=== PATIENT | female | born 1995 | race Caucasian/White ===

== ENCOUNTER 2017-05-21 06:46 | Inpatient (IN) ==
--- NOTE | 2017-05-21 05:56 | OB/GYN History & Physical ---
Date of Encounter: 05/21/17 Time of Encounter: 05:46 Assessment and Plan (1) Active labor at term Current visit: Yes Status: Acute Anticipate spontaneous vaginal delivery History of Present Illness Chief complaint: Active Labor HPI: Ms. Mares is a 21 year old female, presenting via ambulance at 39w s/ p SROM--completely dilated (initial plan for induction later this AM with Dr. Mcgee). Continues to have strong contractions. Preg has been uncomplicated. Pt reports pre- history is unremarkable for identification of risk factors to delivery of baby. Past Med Surg Social Fam HX - Past Medical History Medical history: no medical history Psychiatric history: no psych history - Past Surgical History Surgical History: no surgical history - Social History Smoking Status: Never smoker Smokeless Tobacco Status: No Alcohol use: none Drug use: none - Family History Mother Living Status: Still Living Hx Family Cardiac Disorders: No Hx Family Respiratory Disorders: No Hx Family Cancer: No Hx Family GI Disorders: No Hx Family Endocrine Disorder: No Hx Family Neuromuscular Disorders: No Hx Family Neurologic Disorders: No Hx Family HEENT Disorders: No Hx Family Autoimmune Disorders: No Obstetrical History - Pregnancies : 2 Para: 1 Medications and Allergies Vit #108/Iron/FA [ One Tablet] 1 each PO DAILY 04/28/16 [ History] Breast Pump [BREAST PUMP] 1 each .ROUTE AD #1 each 05/14/16 [Rx] Ferrous Sulfate [Iron] 325 mg PO DAILY #30 tablet 12/28/16 [Rx] Allergies No Known Allergies Allergy (Verified 03/21/17 10:52) Exam - Constitutional Constitutional: well developed, well nourished, no acute distress - HEENT HEENT: Mucus Membranes Moist - Neck Neck exam: full ROM - Lungs Respiratory exam: CTAB - Cardiovascular Cardiovascular exam: +S1, +S2 - Abdomen Abdomen: Present: bowel sounds normal - Extremities Extremities exam: normal inspection, warm - Vagina Vagina: Present: normal moisture - Cervix Dilation: 10 Effacement: 100 Station: +3 - Uterus Uterus exam: Present: enlarged Results All other labs normal.
--- NOTE | 2017-05-21 06:16 | OB/GYN Procedure Note ---
Delivery - Delivery Date: 05/21/17 Provider: Wayne Mendez Intrapartum events: none Delivery induction: none Delivery augmentation: rupture of membranes Delivery monitor: none Anesthesia: none Estimated Blood Loss: 100 - (s) A Delivery Date: 05/21/17 Delivery Time: 05:23 Presentation: vertex Route of delivery: Gender: Male Viability: Viable Pounds: 6 Ounces: 7 at 1 minute: 9 at 5 mins: 9 Shoulder Dystocia: not encountered Specimens collected: cord blood Placenta: complete extraction Cord: 3 umbilical vessels - Repair Episiotomy: none Laceration Description: None - Complications Delivery complications: none - Disposition Mom disposition: stable in LDR
[~2017-05-21 06:46] MED LIST: Acetaminophen 325 MG TABLET PO PRN; Famotidine 20 MG/2 ML VIAL IVP PRN; Measles/Mumps/Rubella Vacc 0.5 ML VIAL SQ PRN; Naloxone 0.4 MG/ML INJ IVP PRN; Oxytocin 20 units/ LR 1000 mL 20 UNIT/1,000 ML BAG IVC ONE; Oxytocin 20 units/ LR 1000 mL 20 UNIT/1,000 ML BAG IVC SCH; Rho Immune Globulin 1,500 UNIT SYRINGE IM PRN
[2017-05-21] MEDS ORDERED: BREAST PUMP PO SCH (07:00)
[2017-05-21] MEDS: Prenatal Vit/FA 1 EACH TABLET PO SCH (08:54)
[2017-05-22 06:24] LABS: Basophils % 0.3 %; Eosinophils # 0.1 K/mcL (0.0-0.6); Hematocrit 30.1 % (35.3-44.9); Hemoglobin 8.8 g/dL (11.5-15.4); Immature Granulocytes % 0.6 % (0-4); Lymphocytes # 3.1 K/mcL (0.6-4.6); Lymphocytes % 29.8 %; Mean Corpuscular HGB Conc 29.2 g/dL (31.6-35.5); Mean Corpuscular Volume 71.7 fL (83.0-100.0); Mean Platelet Volume 9.3 fL (9.4-12.4); Monocytes # 0.5 K/mcL (0.0-1.3); Monocytes % 5.2 %; Neutrophils # 6.6 K/mcL (1.6-8.9); Platelet Count 236 K/mcL (140-400); Red Cell Distribution Width 17.9 % (11.5-14.5); Segmented Neutrophils % 63.1 %
[2017-05-22 08:43] VITALS: BP 106/67
[2017-05-22] MEDS: Prenatal Vit/FA 1 EACH TABLET PO SCH (10:42)
--- NOTE | 2017-05-22 10:47 | Discharge Summary ---
Date of Encounter: 05/22/17 Time of Encounter: 10:44 - Discharge Diagnosis (1) Mother currently breast-feeding Priority: Secondary Status: Acute (2) Anemia Priority: Secondary Status: Acute Comments: Discharge home on iron. Qualifiers: Anemia type: iron deficiency Iron deficiency anemia type: unspecified iron deficiency Qualified Code(s): D50.9 - Iron deficiency anemia, unspecified (3) (normal spontaneous vaginal delivery) Priority: Primary Status: Acute Comments: Pt meeting all milestones. - Discharge Medications Prescriptions: Ibuprofen [Motrin] 600 mg PO Q6HR PRN #60 tab PRN Reason: pain Docusate [Colace] 100 mg PO BID #60 Home Medications: Vit #108/Iron/FA [ One Tablet] 1 each PO DAILY 04/28/16 [ History] Breast Pump [BREAST PUMP] 1 each .ROUTE AD #1 each 05/14/16 [Rx] Ferrous Sulfate [Iron] 325 mg PO DAILY #30 tablet 12/28/16 [Rx] Docusate [Colace] 100 mg PO BID #60 05/22/17 [Rx] Ferrous Sulfate 325 mg PO DAILY #0 tab 05/22/17 [Rx] Ibuprofen [Motrin] 600 mg PO Q6HR PRN #60 tab 05/22/17 [Rx] Vit/FA 1 each PO DAILY tab 05/22/17 [Rx] Allergies/Adverse Reactions: Allergies No Known Allergies Allergy (Verified 03/21/17 10:52) Data Procedures and tests throughout hospitalization: Laboratory Tests 05/22/17 06:14 WBC 10.4 RBC 4.20 Hgb 8.8 L Hct 30.1 L MCV 71.7 L MCH 21.0 L MCHC 29.2 L RDW 17.9 H Plt Count 236 MPV 9.3 L Immature Gran % 0.6 Seg Neutrophils % 63.1 Lymphocytes % 29.8 Monocytes % 5.2 Eosinophils % 1.0 Basophils % 0.3 Neutrophils # 6.6 Lymphocytes # 3.1 Monocytes # 0.5 Eosinophils # 0.1 Basophils # 0.0 Labs on day of discharge: Labs from last 24 hours 05/22/17 06:14 WBC 10.4 RBC 4.20 Hgb 8.8 L Hct 30.1 L MCV 71.7 L MCH 21.0 L MCHC 29.2 L RDW 17.9 H Plt Count 236 MPV 9.3 L Immature Gran % 0.6 Seg Neutrophils % 63.1 Lymphocytes % 29.8 Monocytes % 5.2 Eosinophils % 1.0 Basophils % 0.3 Neutrophils # 6.6 Lymphocytes # 3.1 Monocytes # 0.5 Eosinophils # 0.1 Basophils # 0.0 Date of admission: 05/21/17 06:46 Primary care physician: ЕЛЕНА GUAMAN Consults: 05/21/17 06:07 Consult to Ruby On Rails Developer [CONS] Routine Comment: Vaginal delivery, consult needed Discharging clinician: Akosua Bautista Anticipated date of discharge: 05/22/17 - Patient Status Disposition: Home, Self-Care Condition: Good Functional capacity at discharge: independent ambulation Overall status at discharge: patient is progressing back to baseline - Discharge Instructions Follow Up With: NONE,PCP [Primary Care Provider] - Tom Mcgee DO [Partnered Physician] - - Diet and Activity Activity: increase activity as tolerated Diet: regular diet Hospital Course Reason for admission: active labor Delivery: Episiotomy: none Laceration: none Other procedures: none complications: none Discharge diagnosis: IUP at term delivered baby: male Hospital course: - Delivery Date: 05/21/17 Provider: Wayne Mendez Intrapartum events: none Delivery induction: none Delivery augmentation: rupture of membranes Delivery monitor: none Anesthesia: none Estimated Blood Loss: 100 - Infant (s) Infant A Infant Delivery Date: 05/21/17 Infant Delivery Time: 05:23 Presentation: vertex Route of delivery: Gender: Male Viability: Viable Pounds: 6 Ounces: 7 at 1 minute: 9 at 5 mins: 9 Shoulder Dystocia: not encountered Specimens collected: cord blood Placenta: complete extraction Cord: 3 umbilical vessels - Repair Episiotomy: none Laceration Description: None - Complications Delivery complications: none - Disposition Mom disposition: home Time Attestation: Total time spent providing and/or coordinating discharge services: Time Spent: Less than 30 minutes Exam - Constitutional Vitals: Temp Pulse Resp BP Pulse Ox 98.1 F 63 16 106/67 98 05/22/17 08:05 05/22/17 08:05 05/22/17 08:05 05/22/17 08:05 05/22/17 08:05 General appearance IM: A&O X 3 - Respiratory Respiratory exam: Present: CTAB - Cardiovascular Cardiovascular exam IM: Present: RRR - GI/Abdominal GI/Abdominal exam IM: soft - Uterine Tone: Firm Uterus Position: 2 Fingers Below Umbilicus - Extremities Exam Extremities exam IM: Present: normal inspection - Neurological Exam Neurological exam: normal gait, oriented X3 - Psychiatric Additional comments: reports good mood
== END 2017-05-22 14:30 | disposition home or self-care (01) | DRG 560 ==
LOC: 1NENULAB → 1NENUOBS 08:12
PROVIDERS: ADMIT Obstetrics & Gynecology; ATTEND Obstetrics & Gynecology